=== PATIENT | male | born 1975 | race Caucasian/White ===

== ENCOUNTER → 2025-05-20 08:26 | Outpatient (BNVA) | payer OTHER, SELFPAY | PROVIDERS: Visit Provider Physician Assistant Medical | DX: S46.212A Strain of muscle, fascia and tendon of other parts of biceps, left arm, initial encounter (principal); X50.0XXA Overexertion from strenuous movement or load, initial encounter | CPT/HCPCS: 99203 ==

== ENCOUNTER 2025-05-21 13:23 | Outpatient (AMB) | payer OTHER, SELFPAY ==
--- OUTSIDE RECORDS SUMMARY | 2022-09-03 12:20 | XMS_ITS | Encounter Summary ---
Author Organization [facility] Address [address] [place] [address] Phone Care Team Providers Care Shot Polisher Name Role Phone Jeanna Padron Primary Care Provider +1- [phone] Encounter Details Date Type Department Care Team (Late st Contact Info) Description 09/03/2022 12:20 PM EST Hospital Encounter [facility] [address] [place] [address] Nikki Helton FNP [address] [place] [address] [email or web address] Social History Tobacco Use Types Packs/Day [...] acute fracture or dislocation. us Nikki Helton MANAGER MULTICULTURAL IMG XR LOWER EXTREMITY Eileen l Result documented in this encounter Visit Diagnoses Not on filedocumented in this encounter Care Teams Shot Polisher Relationship Specialty Start Date End Date Jeanna Padron PA [address] [place] [id number] PCP - General Criminology Professor 12/17/21 documented as of this encounter Additional Source Comments The information contained in this document represents components of the legal health record. It is not the complete legal health record.[facility]
--- NOTE | 2025-05-21 13:45 | MHC.OFFVIS ---
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 Patient reports a work injury, stating upon picking up a large pipe, weighing about 200 pounds he heard a rip in his bicep. Due to the pain he immediately placed pipe down quickly. He will remain out of work for the rest of the week and scheduled to return to work light duty on Monday. Allergies No Known Allergies (No Known Allergies*) Allergy (Verified 05/21/25 13:50) Medication List - Last Reconciled 05/21/25 by Lucretia Taylor PA-C atorvastatin 40 mg PO DAILY latanoprost 0.005% drps ophthalmic (eye) HPI HPI MEDICAL DIRECTOR/HEAD TEAM PHYSICIAN-LT bicep tear-distal bicep rupture-DOI 05/19/25: Details: 49 yo male presents to the office today for an injury he sustained to his left bicep on 05/19/2025 while at work. States he was lifting a pipe weighing approximately 200 lb when he felt a pulling sensation in the left biceps region. This immediately followed with a deformity and severe swelling and ecchymosis. Patient was seen the following day at work connection and after evaluation in work connection he was referred to Orthopedics for referral and suspicion of a distal biceps tendon rupture. The patient is right-hand dominant. 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 His job consists of a lot of heavy lifting pushing pulling and carrying of objects and requires full function. 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 Review of Systems Const All systems reviewed & are unremarkable except as noted in HPI and below Physical Exam Vital Signs: Last Vital Signs Pulse 100 05/21/25 13:47 BP 164/68 H 05/21/25 13:47 Pulse Ox 96 05/21/25 13:47 Oxygen Delivery Method Room Air 05/21/25 13:47 BMI result Body Mass Index 30.4 Const General: cooperative, healthy appearing, comfortable, no acute distress, well developed and alert Orientation/consciousness: patient oriented x3 HEENT Head: Yes normal to inspection, Yes normocephalic and Yes atraumatic Eyes General: appearance normal, both eyes and all related structures Neck Neck: Yes normal visual inspection and Yes no lymphadenopathy Resp Effort & Inspection: normal respiratory effort and able to speak in complete sentences Cardio Rate: regular rate Peripheral pulses: Peripheral pulses 2+ throughout GI Inspection: Yes normal to inspection Palpation (GI): Soft to palpation Skin General skin exam: no rashes or lesions noted Neuro General: patient oriented x3 Extrem Other: Left elbow normal to inspection. There is significant ecchymosis over the bicep region with pain along the distal bicep tendon with a notable defect. Pain with pronation against resistance. Psych Appearance: grossly normal Mental Status: mental status grossly normal Assessment & Plan Assessment & Plan (1) Rupture of left distal biceps tendon: Code(s): S46.212A - Strain of muscle, fascia and tendon of other parts of biceps, left arm, initial encounter Category: Medical Qualifiers: Encounter type: initial encounter Qualified Code(s): S46.212A - Strain of muscle, fascia and tendon of other parts of biceps, left arm, initial encounter Plan: Patient with a left distal bicep tendon rupture which would benefit from surgical intervention for optimal functioning. The patient does understand nonsurgical intervention would result in significantly limited function. Given the patient's activity level and desire to continue working without limitations, it would be recommended to pursue surgical intervention. We discussed the procedure in detail along with the risks benefits and alternatives. Risks including but not limited to infection, injury to surrounding nerves and tissue and bone, small and large vessels, stiffness,need for further surgery, DVT/PE along with intraoperative complications including but not limited to . We discussed postoperative recovery which includes The patient does express understanding we would like to proceed with left distal bicep tendon repair with Dr. Foster. The patient will be booked accordingly. Coding Level of Care Code Complex visit Add On G2211 Diagnoses Rupture of left distal biceps tendon, initial encounter S46.665Y Encounter type: initial encounter
[2025-05-21 13:47] VITALS: BP 164/68; PULSE 100; O2SAT 96; BMI 30.4
--- OUTSIDE RECORDS SUMMARY | 2025-05-21 16:31 | XMS_ITS | Clinical Summary ---
Author Organization [facility] Address [address] [place] [address] Phone Care Team Providers Care Cutter Gas Name Role Phone Jeanna Padron Primary Care Provider +1- [phone] Allergies No known active allergies Medications latanoprost (XALATAN) 0.005 % ophthalmic solution Place 1 drop into each eye nightly at bedtime. Active atorvastatin (LIPITOR) 40 MG tablet Take 40 mg by mouth every morning. 3 Active ibuprofen (ADVIL,MOTRIN) 800 MG tablet Take 1 tablet (800 mg total) by mouth 3 (three) times a day for 3 days. then tid prn. 30 tablet 3 04/22/20 25 Discontinued Active Problems No known active problems Encounters Date Type Department Care Team Description 04/22/2025 10:42 AM EDT Anesthesia Event [facility] Admitting Dept Virtual Department [address] [place] [address] Rambo Soto MD 04/22/2025 10:00 AM EDT - 04/22/2025 10:15 AM EDT Surgery [facility] Admitting Dept Virtual Department [address] [place] [address] Kendall Michaud MD COLONOSCOPY 04/22/2025 9:02 AM EDT - 04/22/2025 11:35 AM EDT Hospital Encounter [facility] Admitting [facility] Virtual Department [address] [place] [address] Kendall Michaud MD Discharge Disposition: Home or Self Care 04/22/2025 Procedure Pass [facility] Admitting Dept Virtual Department [address] [place] [address] 04/09/2025 2:00 PM EDT Pre-Admission Testing Pre Procedure Evaluation [address] [place] [address] Kendall Michaud MD from Last 3 Months Social History Tobacco Use Types Packs/Day Years Used Date Smoking Tobacco: Former Cigarettes Smokeless Tobacco: Never Tobacco Cessation:Counseling Given: Not Answered Comments:quit 7-8 yrs ago Alcohol Use Standard [...] on file Sexual Orientation Not on file Last Filed Vital Signs Vital Sign Reading Time Taken Comments Blood Pressure 123/81 04/22/2025 11:15 AM EDT Pulse 84 04/22/2025 11:10 AM EDT Temperature 36.3 C (97.3 F) 04/22/2025 10:58 AM EDT Respiratory Rate 16 04/22/2025 11:10 AM EDT Oxygen Saturation 97% 04/22/2025 11:10 AM EDT Inhaled Oxygen Concentration - - Weight 86.2 kg (190 lb) 04/10/2025 11:58 AM EDT Height 172.7 cm (5' 8 ) 09/03/2022 11:51 AM EST Body Mass Index 28.89 09/03/2022 11:51 AM EST Plan of Treatment Health Maintenance Due Date Last Done Comments LIPID PANEL 1974 DEPRESSION SCREENING 1986 SMOKING Hx and SMOKELESS TOBACCO SCREENING 12/21/1987 HEPATITIS C SCREENING 1992 HIV ONE-TIME SCREENING (18-65 YEARS) 1992 SCREENING FOR DIABETES 2009 COLOGUARD 12/21/2019 FIT TEST 12/21/2019 FOBT 12/21/2019 SIGMOIDOSCOPY 12/21/2019 VIRTUAL COLONOSCOPY 12/21/2019 PNEUMOCOCCAL VACCINES (50+ years) (1 of 1 - PCV) 2024 ZOSTER VACCINES (1 of 2) 2024 Adult Td,Tdap Booster 07/07/2025 07/07/2015 COLONOSCOPY 04/22/2028 04/22/2025, 04/14/2022 COLORECTAL CANCER SCREENING 04/22/2028 RSV VACCINE (1 - 1-dose 75+ series) 2049 COVID-19 VACCINE Completed 03/22/2025, , 04/22/2023, Additional history exists INFLUENZA VACCINE Completed 03/22/2025, , 04/22/2023, Additional history exists HEPATITIS A VACCINES Aged Out No long er eligible based on patient's age to complete this topic HIB VACCINES Aged Out No longer eligi ble based on patient's age to complete this topic MENINGOCOCCAL VACCINES (ACWY) Aged Out No longer eligible based on patient's age to complete this topic MENINGOCOCCAL VACCINES (B) Aged Out N o longer eligible based on patient's age to complete this topic Medical Devices Not on file Procedures Procedure Name Priority Date/Time Associated Diagnosis Comments ND COLSC FLX W/RMVL OF TUMOR POLYP LESION SNARE TQ 04/22/2025 10:42 AM EDT Hx of colonic polyps Special Needs direct ND COLONOSCOPY W/BIOPSY SINGLE/MULTIPLE 04/22/2025 10:42 AM EDT Hx of colonic polyps Special Needs direct ND COLONOSCOPY FLX DX W/COLLJ SPEC WHEN PFRMD 04/22/2025 10:42 AM EDT Hx of colonic polyps Special Needs direct ENDOSCOPY, COLON 04/22/2025 10:3 8 AM EDT ANATOMIC PATHOLOGY Routine 04/22/2025 12 :00 AM EDT from Last 3 Months Results * ENDOSCOPY, COLON (04/22/2025 10:38 AM EDT) Narrative Transcriptions Kendall Michaud MD - 04/22/2025 10:[address] [facility] Patient Name: Toma Smith Attending MD:: KENDALL MICHAUD MD, , Procedure Date: 04/22/2025 10:38AM Date of : 1975 Age: 49 Admit Type: Outpatient Gender: Male Room: [place] [address] Referring MD: Jeanna Padron Exam Type: Colonoscopy Indications: High risk colon cancer surveillance: Personalhistory of colonic polyps Medications: Monitored Anesthesia Care Procedure: Informed consent was obtained from the patientafter discussion of the indications, limitations, alternatives, benefits, and risks of the procedure. Risks specifically discussed include but are not limited to medication reactions, missed lesions, bleeding, perforation, or the need for emergent surgery. Throughout the procedure, the patient's blood pressure, pulse, end-tidal CO2, and oxygensaturations were monitored continuously. The Olympus adult variable colonoscope [id number] #7 was introduced through the anus and advanced to the cecum, identified by appendiceal orifice andileocecal valve. The colonoscopy was performed without difficulty. The patient tolerated the procedurewell. The quality of the bowel preparation was excellent. The quality of the bowel preparation was evaluated using the BBPS (Dodge Bowel Preparation Scale)with scores of: Right Colon = 3, Transverse Colon = 3and Left Colon = 3 (entire mucosa seen well with no residual staining, small fragments of stool oropaque liquid). The total BBPS score equals 9. Anatomical landmarks were photographed. Complications: No immediate complications. Estimated blood loss: Minimal. Findings: The perianal and digital rectal examinations were normal. Two sessile polyps were found in the cecum. Thepolyps were 3 to 8 mm in size. These polyps were removedwith a cold snare. Resection and retrieval werecomplete. A 5 mm polyp was found in the ascending colon. The polyp was sessile. The polyp was removed with acold snare. Resection and retrieval were complete. Scattered small and large-mouthed diverticula were found in the sigmoid colon. Internal hemorrhoids were found duringretroflexion. The hemorrhoids were mild. The exam was otherwise normal throughout theexamined colon. Impression: - Two 3 to 8 mm polyps in the cecum, removed with a cold snare. Resected and retrieved. - One 5 mm polyp in the ascending colon, removedwith a cold snare. Resected and retrieved. - Mild diverticulosis in the sigmoid colon. - Internal hemorrhoids. Recommendation: - Discharge patient to home. - Await pathology results. - Repeat colonoscopy in 3 years for surveillance. KENDALL MICHAUD MD, 04/22/2025 10:55:58 AM This report has been signed electronically. Number of Addenda: 0 Note Initiated On: 04/22/2025 10:38 AM Procedure Code(s): --- Professional --- 01447, Colonoscopy, flexible; with removal of tumor(s), polyp(s), or other lesion(s) by snare technique --- Technical --- 89663, Colonoscopy, flexible; with removal of tumor(s), polyp(s), or other lesion(s) by snare technique Diagnosis Code(s): --- Professional --- Z86.010, Personal history of colonic polyps D12.0, Benign neoplasm of cecum D12.2, Benign neoplasm of ascending colon K64.8, Other hemorrhoids K57.30, Diverticulosis of large intestine without perforation or abscess without bleeding --- Technical --- Z86.010, Personal history of colonic polyps D12.0, Benign neoplasm of cecum D12.2, Benign neoplasm of ascending colon K64.8, Other hemorrhoids K57.30, Diverticulosis of large intestine without perforation or abscess without bleeding CPT copyright 2021 [employer]. All rights reserved. The codes documented in this report are preliminary and upon supply chain generalist reviewmay be revised to meet current compliance requirements. Procedure Date: 04/22/2025 10:38:[address] [place] [address] Jeanna SCHILLING GI PROCEDURE ORDERABLES Fi nal Result * Anatomic Pathology (04/22/2025 12:00 AM EDT) 04/22/2025 04/22/2025 1:4 5 PM EDT Narrative SEE NARRATIVE - 04/23/2025 3:45 PM EDT [address] [address] Cost Clerk: Eze Juarez MD Surgical Pathology Report FINAL PATHOLOGIC DIAGNOSIS: CECUM AND ASCENDING COLON POLYPS: Adenomatous polyp fragments. Electronically Signed Out By Eze Juarez MD By his/her signature above, the pathologist listed as making the Final Diagnosis certifies that he/she has personally reviewed this case and confirmed or corrected the diagnosis. CLINICAL HISTORY History of colon polyps [Z86.0100] SPECIMENS SUBMITTED: A: CECUM, POLYPS X 2, AND ASCENDING COLON, POLYP GROSS DESCRIPTION CECUM, POLYPS X 2, AND ASCENDING COLON, POLYP: Received in formalin are multiple irregular grande-pink soft tissue fragments varying in size from 0.1 x 0.1 x 0.1 cm up to 0.7 x 0.4 x 0.1 cm which are submitted in toto in a single cassette labeled A1. Grossed by: RAQUEL Diamond, PA(ASCP) [id number] 04/22/2025 [facility] Staff: [id number] Patient Name: TOMA SMITH : 1975 (Age: 49) Sex: M Institution: [facility] Location: [facility] Date of Operation: 04/22/2025 Date of Reported: 04/23/2025 15:45 Results To: Kendall Michaud MD, BS, MS Jeanna Anaydipti Padron PAC us Kendall Michaud MD LAB PATHOLOGY ORDERABLES Final R esult SEE NARRATIVE from Last 3 Months Insurance OUT [facility] PPO [facility] OUT [facility] PPO [employer] [place] OUT OF STATE PPO [employer] OUT OF STATE PPO BL[employer] [place] OUT OF STATE PPO [employer] [place] OUT OF STATE PPO [facility] OUT OF [place] [address] [place] [address] OUT [facility] PPO [facility] PPO Care Teams Cutter Gas Relationship Specialty Start Date End Date Jeanna Padron PA [address] [place] [address] PCP - General City Clerk 12/17/21 Additional Source Comments The information contained in this document represents components of the legal health record. It is not the complete legal health record.[facility]
--- OUTSIDE RECORDS SUMMARY | 2025-05-21 16:31 | XMS_ITS | Encounter Summary ---
Author Organization [facility] Address [address] [place] [address] Phone Care Team Providers Care Manager Benefit Name Role Phone Jeanna Padron Primary Care Provider +1- [phone] Encounter Details Date Type Department Care Team (Late st Contact Info) Description 04/22/2025 Procedure Pass [facility]oscopy Admitting Dept Virtual Department [address] [place] [address] Social History Tobacco Use Types Packs/Day Years [...] on file documented as of this encounter Visit Diagnoses Not on filedocumented in this encounter Care Teams Manager Benefit Relationship Specialty Start Date End Date Jeanna Padron PA [address] [place] [address] PCP - General Leather Colorer 12/17/21 documented as of this encounter Additional Source Comments The information contained in this document represents components of the legal health record. It is not the complete legal health record.[facility]
--- OUTSIDE RECORDS SUMMARY | 2025-05-21 16:31 | XMS_ITS | Encounter Summary ---
Author Organization [facility] Address [address] [place] [address] Phone Care Team Providers Care Locker Operator Name Role Phone Jeanna Padron Primary Care Provider +1- [phone] Encounter Details Date Type Department Care Team (Late st Contact Info) Description 04/14/2022 Procedure Pass [facility] Endoscopy Admitting Dept Virtual Department [address] [place] [address] Social History Tobacco Use Types Packs/Day Years Used Date Smoking Tobacco: Former Cigarettes Smokeless Tobacco: Never Comments:quit 7-8 yrs ago Alcohol Use Standard Drinks/Week Comments Yes 0 (1 standard drink = 0.6 oz pur e alcohol) socially Sex and Gender Information Value Date Recorded Sex Assigned at Not on file Legal Sex Male 9:53 AM EDT Gender Identity Not on file Sexual Orientation Not on file documented as of this encounter Plan of Treatment Not on file documented as of this encounter Visit Diagnoses Not on filedocumented in this encounter Care Teams Locker Operator Relationship Specialty Start Date End Date Jeanna Padron PA [address] [place] [id number] PCP - General Form Presser 12/17/21 documented as of this encounter Additional Source Comments The information contained in this document represents components of the legal health record. It is not the complete legal health record.[facility]
== END 2025-05-21 15:22 | disposition home or self-care (01) ==
LOC: HO.HOS 13:24
PROVIDERS: Visit Provider Physician Assistant
DX: S46.212A Strain of muscle, fascia and tendon of other parts of biceps, left arm, initial encounter (principal)
CPT/HCPCS: 99204; G2211

== ENCOUNTER → 2025-05-21 13:23 | Outpatient (BNVA) | payer OTHER, SELFPAY | PROVIDERS: Visit Provider Physician Assistant | DX: S46.212A Strain of muscle, fascia and tendon of other parts of biceps, left arm, initial encounter (principal); X50.0XXA Overexertion from strenuous movement or load, initial encounter; Y93.89 Activity, other specified; Y92.89 Other specified places as the place of occurrence of the external cause; Y99.0 Civilian activity done for income or pay | CPT/HCPCS: 99202 ==

== ENCOUNTER 2025-05-23 08:44 | Day surgery (SDC) | payer OTHER, SELFPAY ==
[2025-05-23] VITALS (9 sets, daily range): BP systolic 140–162; BP diastolic 65–97; PULSE 72–100; RESP 10–16; TEMP 36.5–37.1; O2SAT 92–98; BMI 30.4
--- NOTE | ~2025-05-23 | FL_ITS ---
EXAMINATION: FLUOROSCOPY GUIDANCE FOR NEEDLE PLACEMENT CLINICAL INFORMATION: left biceps tear COMPARISON: None available. TECHNIQUE: Intraoperative fluoroscopy guidance provided for biceps tendon repair FINDINGS: 2 intraoperative fluoroscopic images of the left elbow/proximal forearm. Images demonstrate lucency and surgical button projecting over the proximal shaft of the radius. FLUOROSCOPY TIME: 30 seconds DOSE AREA PRODUCT: 0.06 Gy-cm2 FL/FL guidance in OR IMPRESSION: Fluoroscopy guidance for biceps tendon repair. Electronically signed by: Radha Zheng MD 05/23/2025 12:53 PM ANGEL[facility]
--- NOTE | 2025-05-23 09:51 | HO.ANESPROP2 ---
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 Meds Allergies Allergy/AdvReac Type Severity Reaction Status Date / Time No Known Allergies (No Known Allergy Verified 05/21/25 13:50 Allergies*) Home Medications ?Medication ?Instructions ?Recorded ?Confirmed ?Last Taken ?Type atorvastatin 40 mg tablet 40 mg PO DAILY 05/21/25 05/23/25 05/21/25 History latanoprost 0.005 % eye drops drp ophthalmic (eye) 05/21/25 05/21/25 05/22/25 History Exam Exam Date and Time: 05/23/25 0945 Height,Weight and Vital Signs: Height 5 ft 8 in Weight 90.718 kg Last Vital Signs Temp 98.8 F 05/23/25 09:15 Pulse 72 05/23/25 09:15 Resp 14 05/23/25 09:15 BP 154/88 H 05/23/25 09:15 Pulse Ox 97 05/23/25 09:15 O2 Del Method Room Air 05/23/25 09:15 Airway Mallampati Class: II TM Dist: >3cm Neck ROM: Limited Loose/Missing/Broken Teeth: No (patient denies any loose or broken teeth) Heart: S1S2 Lungs: CTAB Assessment and Plan Assessment Anesthesia Assessment: Anesthesia Plan Discussed and Chart Reviewed Final Anesthetic Review Family History of Problems with Anesthesia: No History of Problems with Anesthesia: No NPO: Yes ASA Class: I Final Preanesthetic Review: No Changes in Pt Med Stat, Meds/Allgs Chart Reviewed, Consent Obtained/Reviewed and Anes Risks/Benef Reviewed Patient Risk: Low Procedure Risk: Low Anesthetic Plan Anesthetic Plan: GA, Regional Block (ledt brachial plexus block) and Agree w/ Assess. and Plan Disposition: Standard PACU
--- NOTE | 2025-05-23 10:12 | MHC.SHP ---
Pre-Procedural Eval Section A - 24 Hr Update-Section A only Date of Service: 05/23/25 The patient is an INPATIENT: No Changes since office visit: No Cold of Flu in the past 2 weeks, No New Medical Problems, No Changes in Medication and No Patient answered all questions The patient has been examined within 24 hours of the surgical procedure. The History & Physical has been completed within 30 days and I have reviewed it.: Yes Section B - Complete if H&P > 30 days Chief Complaint: Strain of muscle, fascia and tendon of other parts Allergies: Allergies Allergy/AdvReac Type Severity Reaction Status Date / Time No Known Allergies (No Known Allergy Verified 05/21/25 13:50 Allergies*) Plan I have reviewed the history and physical and performed a pertinent physical examination on my patient. No changes have occurred unless specified. Time Spent With Patient Time: Total time managing care of this patient today ____ minutes.
--- NOTE | 2025-05-23 12:11 | P.BOP_ITS ---
Brief Operative Note Date of Service: 05/23/25 Pre-op diagnosis: Left distal biceps rupture Post-op diagnosis: same Procedure: Left distal biceps repair Implants: Arthrex biceps button and if screw Surgeon: Miguel Foster MD Anesthesia: GETA and local Was an Furniture Manager used for this Procedure?: No Estimated blood loss (mL): 25 IV fluids (mL): 750 Pathology: none sent Condition: stable Disposition: PACU
[2025-05-23] MEDS: oxyCODONE HCl Immed Release 5 MG TABLET PO (12:25)
--- NOTE | 2025-05-25 09:09 | HO.POSTANES ---
Post Anesthesia Evaluation Post Anesthesia Evaluation Date of Service: 05/23/25 Anesthesia: General Endotracheal-GETA Mental Status: Awake Pain Control: Satisfactory Nausea/Vomiting: None Hydration: Adequate Anesthesia-Related Issues: No Anes. Related Issues
--- NOTE | 2025-05-26 11:40 | P.OP_ITS ---
Operative Note Operative Note Date of Service: 05/23/25 Narrative: Date of Service: 05/23/25 Pre-op diagnosis: Left distal biceps rupture Post-op diagnosis: same Procedure: Left distal biceps repair Implants: Arthrex biceps button and if screw Surgeon: Miguel Foster MD Anesthesia: GETA and local Was an Net Lead Developer used for this Procedure?: No Estimated blood loss (mL): 25 IV fluids (mL): 750 Pathology: none sent Condition: stable Disposition: PACU Procedure detail: Patient was brought to operating room placed supine on the hand table and prepped and draped in standard sterile fashion. He had a roberta deformity. I made a transverse incision at the level of the radial tuberosity and the dissected through the skin sharply and then digitally dissected until I entered the biceps sheath. I then performed a milking maneuver and using an Allis clamp was able to fish out the retracted avulsed biceps tendon. Edges were cleaned up and this was made to fit through 8 aperture with a FiberWire whipstitched on the distal 15 mm of the tendon. I then identified the insertion site on the radial tuberosity. A Beef pin was drilled bicortically and then a 8 mm Reamer was over reamed in the near cortex. I then attached the whipstitched ends of the FiberWire to an Arthrex endobutton and passed the button through the 2nd cortex. I then flipped the button and tightened the tendon into the cortex of at the level of the radial tuberosity. This required slight flexion of the elbow. I then tied a knot this level and placed an 7 mm distal biceps interference screw. I then took the elbow through range of motion. Biceps was dunked into the bone and stable. The last 5 degrees of terminal extension and supination were tight but I was able to extend the elbow fully. I was satisfied with the repair. The wound was irrigated. I then closed with a running Prolene with the ends left out and skin glue and Steri-Strips. I injected approximately 20 mL of 0.25% bupivacaine plain. Patient was placed into sterile dressings. Patient was placed into a posterior splint extubated and brought to recovery room in stable condition. There were no complications
--- NOTE | 2025-05-26 15:30 | PC.NURSE ---
Pain score of 6/10 patient received Oxycodone 5mg.
== END 2025-05-23 13:00 | disposition home or self-care (01) ==
PROVIDERS: Visit Provider Orthopaedic Surgery
PROC: (CPT 24341; principal; 2025-05-23 12:00)
DX: S46.212A Strain of muscle, fascia and tendon of other parts of biceps, left arm, initial encounter (principal); X50.0XXA Overexertion from strenuous movement or load, initial encounter; Y93.89 Activity, other specified; Y92.89 Other specified places as the place of occurrence of the external cause; Y99.0 Civilian activity done for income or pay; Z79.899 Other long term (current) drug therapy; Z98.890 Other specified postprocedural states
CPT/HCPCS: 24342; C1713; J0131; J0690; J1100; J1171; J1885; J2003; J2250; J2371; J2405; J2704; J2795; J3010

== ENCOUNTER → 2025-05-23 08:44 | Outpatient (BNV) | payer OTHER, SELFPAY | PROVIDERS: Visit Provider Orthopaedic Surgery | DX: S46.212A Strain of muscle, fascia and tendon of other parts of biceps, left arm, initial encounter (principal) | CPT/HCPCS: 24342 ==

== ENCOUNTER 2025-05-29 09:58 | Outpatient (AMB) | payer OTHER, SELFPAY ==
--- NOTE | 2025-05-29 10:23 | MHC.OFFVIS ---
Intake Visit Reasons: PO LT bicep tendon repair 05/23/25 NE Intake Note: Samuel is a 49 year old male who presents post operatively after undergoing a left bicep tendon repair, performed by Dr. Foster on 05/23/25. Patient reports that he is doing well, states soreness in his arm. His most discomfort comes at night with sleeping. Allergies No Known Allergies (No Known Allergies*) Allergy (Verified 05/29/25 10:26) Medication List - Last Reconciled 05/29/25 by Lucretia Taylor PA-C atorvastatin 40 mg PO DAILY latanoprost 0.005% drdenys ophthalmic (eye) oxycodone-acetaminophen 5-325 mg (Percocet) 1 tab PO Q4-6H PRN 7 days HPI HPI PO LT bicep tendon repair 05/23/25 NE: Details: 49-year-old gentleman presents to the office today status post left biceps tendon repair on 05/23/[address] Foster. He has some moderate discomfort but overall he is doing well. 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 Minimal swelling. No erythema or drainage. Neurovascularly intact. Results Reviewed Results Reviewed: Brief Operative Note Date of Service: 05/23/25 Pre-op diagnosis: Left distal biceps rupture Post-op diagnosis: same Procedure: Left distal biceps repair Implants: Arthrex biceps button and if screw Surgeon: Miguel Foster MD Assessment & Plan Assessment & Plan (1) Rupture of left distal biceps tendon: Code(s): S46.212A - Strain of muscle, fascia and tendon of other parts of biceps, left arm, initial encounter Category: Medical Qualifiers: Encounter type: initial encounter Qualified Code(s): S46.212A - Strain of muscle, fascia and tendon of other parts of biceps, left arm, initial encounter Plan: Sutures removed today Steri-Strips applied. The patient was fit for an elbow range of motion brace with limited flexion to 45 and ext to 15. He will begin OT to work on gentle ROM, no lifting or supination against resistance. He will continue to remain out of work until we see him back in 2 weeks for ROM check, sooner if needed. Orders: Orders OT Evaluation and Treatment Today S46.212A - Strain of muscle, fascia and tendon of other parts of biceps, left arm, initial encounter Coding Level of Care Code Global (33970) Diagnoses Rupture of left distal biceps tendon, initial encounter S46.212A Encounter type: initial encounter
== END 2025-05-29 11:02 | disposition home or self-care (01) ==
PROVIDERS: Visit Provider Physician Assistant
DX: S46.212A Strain of muscle, fascia and tendon of other parts of biceps, left arm, initial encounter (principal)
CPT/HCPCS: 99024

== ENCOUNTER → 2025-05-29 09:58 | Outpatient (BNVA) | payer OTHER, SELFPAY | PROVIDERS: Visit Provider Physician Assistant | DX: S46.212D Strain of muscle, fascia and tendon of other parts of biceps, left arm, subsequent encounter (principal); X58.XXXD Exposure to other specified factors, subsequent encounter | CPT/HCPCS: 99212 ==

== ENCOUNTER 2025-06-16 11:13 | Outpatient (AMB) | payer OTHER, SELFPAY ==
--- OUTSIDE RECORDS SUMMARY | 2022-09-03 12:20 | XMS_ITS | Encounter Summary ---
Author Organization [facility] Address [address] [place] [address] Phone Care Team Providers Care Belt And Link Shop Supervisor Name Role Phone Jeanna Padron Primary Care Provider +1- [phone] Encounter Details Date Type Department Care Team (Late st Contact Info) Description 09/03/2022 12:20 PM EST Hospital Encounter [facility] [address] [place] [address] Nikki Helton FNP [address] [place] [id number] [email or web address] Social History Tobacco Use Types Packs/Day Years Used Date Smoking Tobacco: Former Cigarettes Smokeless Tobacco: Never Comments:quit 7-8 yrs ago Alcohol Use Standard Drinks/Week Comments Yes 0 (1 standard drink = 0.6 oz pur e alcohol) 2 daily Education Answer Date Recorded Are you interested in more education? Not on luzmaria e 10/21/2022 Are you concerned about learning? Not on file 10/21/2022 No 10/21/2022 No 10/21/2022 Digital Access Answer Date Recorded No 11/19/2022 No 11/19/2022 Reliable internet access at home? Not on file 11/19/2022 Device with a working camera? Not on file Intimate Partner Violence Answer Date R ecorded Are you denied basic needs s uch as food, clothing, or medical care? No 04/22/2025 In the past 12 months have y ou been in a relationship with a person who hurts, threatens, or tries to control you? No 04/22/2025 Are you denied basic needs s uch as food, clothing, or medical care? No 04/22/2025 In the past 12 months have y ou been in a relationship with a person who hurts, threatens, or tries to control you? No 04/22/2025 Sex and Gender Information Value Date Recorded Sex Assigned at Not on file Legal Sex Male 9:53 AM EDT Gender Identity Not on file Sexual Orientation Not on file documented as of this encounter Plan of Treatment Not on file documented as of this encounter Procedures Procedure Name Priority Date/Time Associated Diagnosis Comments XR ANKLE 3 OR MORE VIEWS (RIGHT) Urgent/patient waiting 09/03/2022 12:27 PM EST Sprain of right ankle, unspecified ligament, initial encounter documented in this encounter Results * XR ANKLE 3 OR MORE VIEWS (RIGHT) (09/03/2022 12:27 PM EST) Anatomical Region Laterality Modality Ankle Right Computed Radiogr aphy 09/03/2022 12:3 1 PM EST Impressions 09/03/2022 12:32 PM EST No acute fracture or dislocation. Narrative 09/03/2022 12:32 PM EST XR ANKLE 3 OR MORE VIEWS (RIGHT) COMPARISON: None. FINDINGS: There is no acute fracture or traumatic dislocation. Circumferential soft tissue swelling over the ankle. No radiographically apparent foreign body is seen. Procedure Note Myla Mohr MD - 09/03/2022 XR ANKLE 3 OR MORE VIEWS (RIGHT) COMPARISON: None. FINDINGS: There is no acute fracture or traumatic dislocation. Circumferential softtissue swelling over the ankle. No radiographically apparent foreign bodyis seen. IMPRESSION: No acute fracture or dislocation. us Nikki Helton CHIEF INNOVATION OFFICER IMG XR LOWER EXTREMITY Eileen l Result documented in this encounter Visit Diagnoses Not on filedocumented in this encounter Care Teams Belt And Link Shop Supervisor Relationship Specialty Start Date End Date Jeanna Padron PA [address] [place] [id number] PCP - General Eviscerator 12/17/21 documented as of this encounter Additional Source Comments The information contained in this document represents components of the legal health record. It is not the complete legal health record.[facility]
[2025-06-16 11:42] VITALS: BMI 30.4
--- NOTE | 2025-06-16 11:42 | A.OFFVIS_ITS ---
Vital Signs 06/16/25 11:42 Height 5 ft 8 in Weight 200 lb BMI 30.4 Intake Visit Reasons: PO LT bicep tendon repair 05/23/25 NE Intake Note: Samuel is a 49 year old male who presents post operatively after undergoing a left bicep tendon repair, performed by Dr. Foster on 05/23/25. Patient reports that he is doing well, progressing well. He is working with CORE therapy, which is going well and his ROM is improving. No concerns today. Allergies No Known Allergies (No Known Allergies*) Allergy (Verified 05/29/25 10:26) HPI HPI PO LT bicep tendon repair 05/23/25 NE: Details: Four weeks status post left biceps tendon repair. He is doing well with no complaints. He is still out of work. He is following up with physical therapy. 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 Follow up in 4 weeks' time. Continue out of work status. This DC brace and no lifting. Range of motion exercises at home. Coding Level of Care Code Global (58459) Diagnoses Rupture of left distal biceps tendon, initial encounter S46.212A Encounter type: initial encounter
--- OUTSIDE RECORDS SUMMARY | 2025-06-16 14:18 | XMS_ITS | Encounter Summary ---
Author Organization [facility] Address [address] [place] [address] Phone Care Team Providers Care Draw Bench Operator Name Role Phone Jeanna Padron Primary Care Provider +1- [phone] Encounter Details Date Type Department Care Team (Late st Contact Info) Description 04/22/2025 Procedure Pass [facility] Endoscopy Admitting Dept Virtual Department [address] [place] [address] Social History Tobacco Use Types Packs/Day Years [...] on filedocumented in this encounter Care Teams Draw Bench Operator Relationship Specialty Start Date End Date Jeanna Padron PA [address] [place] [id number] PCP - General All Source Analyst 12/17/21 documented as of this encounter Additional Source Comments The information contained in this document represents components of the legal health record. It is not the complete legal health record.[facility]
--- OUTSIDE RECORDS SUMMARY | 2025-06-16 14:18 | XMS_ITS | Clinical Summary ---
Author Organization [facility] Address [address] [place] [address] Phone Care Team Providers Care Hair Specialist Name Role Phone Jeanna Padron Primary Care Provider +1- [phone] Allergies No known active allergies Medications latanoprost (XALATAN) 0.005 % ophthalmic solution Place 1 drop into each eye nightly at bedtime. Active atorvastatin (LIPITOR) 40 MG tablet Take 40 mg by mouth every morning. 05/17/2023 Active Active Problems No known active problems Encounters Date Type Department Care Team Description 04/22/2025 10:42 AM EDT Anesthesia Event [facility] Endoscopy Admitting Dept Virtual Department [address] [place] [address] Rambo Soto MD 04/22/2025 10:00 AM EDT - 04/22/2025 10:15 AM EDT Surgery [facility] Endoscopy Admitting Dept Virtual Department [address] [place] [address] Kendall Michaud MD COLONOSCOPY 04/22/2025 9:02 AM EDT - 04/22/2025 11:35 AM EDT Hospital Encounter [facility] Endoscopy Admitting Dept Virtual Department [address] [place] [address] Kendall Michaud MD Discharge Disposition: Home or Self Care 04/22/2025 Procedure Pass [facility] Endoscopy Admitting Dept Virtual Department [address] [place] [address] 04/09/2025 2:00 PM EDT Pre-Admission Testing Pre Procedure Evaluation [address] [place] [address] Kendall Michaud MD from Last 3 Months [...] Procedure Name Priority Date/Time Associated Diagnosis Comments NE COLSC FLX W/RMVL OF TUMOR POLYP LESION SNARE TQ 04/22/2025 10:42 AM EDT Hx of colonic polyps Special Needs direct NE COLONOSCOPY W/BIOPSY SINGLE/MULTIPLE 04/22/2025 10:42 AM EDT Hx of colonic polyps Special Needs direct NE COLONOSCOPY FLX DX W/COLLJ SPEC WHEN PFRMD 04/22/2025 10:42 AM EDT Hx of colonic polyps Special Needs direct ENDOSCOPY, COLON 04/22/2025 10:3 8 AM EDT ANATOMIC PATHOLOGY Routine 04/22/2025 12 :00 AM EDT from Last 3 Months Results * ENDOSCOPY, COLON (04/22/2025 10:38 AM EDT) Narrative Transcriptions Kendall Michaud MD - 04/22/2025 10:38 AM EDT [facility] Patient Name: Toma Иван Attending MD:: KENDALL MICHAUD MD, , Procedure Date: 04/22/2025 10:38AM Date of : 1975 Age: 49 Admit Type: Outpatient Gender: Male Room: [place] [address] Referring MD: Jeanna Padron Exam Type: Colonoscopy [...] monitored continuously. The Olympus adult variable colonoscope [id number] #7 was introduced through the anus and advanced to the cecum, identified by appendiceal orifice andileocecal valve. The colonoscopy was performed without difficulty. The patient tolerated the procedurewell. The quality of the bowel preparation was excellent. The quality of the bowel preparation was evaluated using the BBPS ([place] Bowel Preparation Scale)with scores of: Right Colon [...] 10:38 AM Procedure Code(s): --- Professional --- 24509, Colonoscopy, flexible; with removal of tumor(s), polyp(s), or other lesion(s) by snare technique --- Technical --- 47485, Colonoscopy, flexible; with removal of tumor(s), polyp(s), [...] or abscess without bleeding CPT copyright 2021 [employer]. All rights reserved. The codes documented in this report are preliminary and upon inspector missile reviewmay be revised to meet current compliance requirements. Procedure Date: 04/22/2025 10:38:[address] [place] [id number] Jeanna SCHILLING GI PROCEDURE ORDERABLES Fi nal Result * Anatomic Pathology (04/22/2025 12:00 AM EDT) 04/22/2025 04/22/2025 1:4 5 PM EDT Narrative SEE NARRATIVE - 04/23/2025 3:45 PM EDT [address] [address] Team Cdl Driver: Eze Juarez MD Surgical Pathology Report FINAL [...] cassette labeled A1. Grossed by: RAQUEL Diamond, PA([facility]) [id number] 04/22/2025 Grossing Staff: [id number] Patient Name: TOMA SMITH : 1975 (Age: 49) Sex: M Institution: [facility] Date of Operation: 04/22/2025 Date of Reported: 04/23/2025 15:45 Results To: Kendall Michaud MD, BS, MS Jeanna Padron PAC us Kendall Michaud MD LAB PATHOLOGY ORDERABLES Final R esult SEE NARRATIVE from Last 3 Months Insurance [facility] OUT OF STATE PPO [facility] OUT OF [facility] PPO [place]UE [place] OUT OF STATE PPO BLUE [place] OUT OF STATE PPO [place] OUT OF STATE PPO BLUE [place] OUT OF STATE PPO [place] OUT OF STATE PPO [place] OUT OF STATE PPO [facility] OUT [facility] PPO Care Teams Hair Specialist Relationship Specialty Start Date End Date Jeanna Padron PA [address] [place] [address] PCP - General Supervisor Refining 12/17/21 Additional Source Comments The information contained in this document represents components of the legal health record. It is not the complete legal health record.[facility]
--- OUTSIDE RECORDS SUMMARY | 2025-06-16 14:18 | XMS_ITS | Encounter Summary ---
Author Organization [facility] Address [address] [place] [phone] Phone Care Team Providers Care Assembler Fluorescent Lights Name Role Phone Jeanna Padron Primary Care Provider +1- [phone] Encounter Details Date Type Department Care Team (Late st Contact Info) Description 04/14/2022 Procedure Pass [facility] Endoscopy Admitting Dept Virtual Department [address] [place] [address] Social History Tobacco Use Types Packs/Day Years [...] on filedocumented in this encounter Care Teams Assembler Fluorescent Lights Relationship Specialty Start Date End Date Jeanna Padron PA [address] [place] [id number] PCP - General Fabric Sourcer 12/17/21 documented as of this encounter Additional Source Comments The information contained in this document represents components of the legal health record. It is not the complete legal health record.[facility]
== END 2025-06-17 08:29 | disposition home or self-care (01) ==
LOC: HO.HOS 11:14
PROVIDERS: PCP Physician Assistant Medical; Visit Provider Orthopaedic Surgery
DX: S46.212A Strain of muscle, fascia and tendon of other parts of biceps, left arm, initial encounter (principal)
CPT/HCPCS: 99024

== ENCOUNTER → 2025-06-16 11:13 | Outpatient (BNVA) | payer OTHER, BC, SELFPAY | PROVIDERS: PCP Physician Assistant Medical; Visit Provider Orthopaedic Surgery | DX: Z47.89 Encounter for other orthopedic aftercare (principal); S46.212D Strain of muscle, fascia and tendon of other parts of biceps, left arm, subsequent encounter; X58.XXXD Exposure to other specified factors, subsequent encounter | CPT/HCPCS: 99212 ==